=== PATIENT | female | born 1995 | race African-American/Black ===

== ENCOUNTER 2017-07-05 14:50 | Emergency (ER) | payer OTHER ==
[2017-07-05] MEDS ORDERED: Ibuprofen 600 MG Tab ONE (15:09)
[2017-07-05] MEDS ORDERED: metroNIDAZOLE 500 MG Tab PO ONE (16:44)
[2017-07-05] MEDS ORDERED: cefTRIAXone 250 MG Vial IM ONE (16:44)
[2017-07-05] MEDS ORDERED: Azithromycin 250 MG Tab PO ONE (16:45)
[2017-07-05] MEDS ORDERED: Ondansetron 4 MG Tab.DIS PO ONE (16:45)
[2017-07-05] MEDS ORDERED: Levonorgestrel 1.5 MG Tab PO ONE (17:48)
--- NOTE | 2017-07-07 11:42 | ER ---
DATE SEEN: 07/05/2017 A telephone call placed to Maria Guadalupe Mathews. She was at this number, . The other number which she had given to me, was out of service. She was advised that she needs to follow up with her doctor tomorrow to discuss prevention of AIDS and she will do that. She is traveling back to [facility] and will make that arrangement tomorrow, see her doctor tomorrow. The patient was called at 1950 hours. /[id number] JYOTI/ROGELIO
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
== END 2017-07-05 18:00 | disposition home or self-care (01) ==
LOC: FB.ED 17:02
DX: T74.21XA Adult sexual abuse, confirmed, initial encounter (principal)
CPT/HCPCS: 81001; 81025; 87210; 87491; 87591; 96372; 99285; A9270-GY; J0696